=== PATIENT | male | born 1960 | race Caucasian/White ===

== ENCOUNTER 2022-07-03 20:50 | Emergency (ER) | payer OTHER, SELFPAY ==
[2022-07-03 20:55] VITALS: PULSE 102; RESP 16; TEMP 35.9; O2SAT 94
--- NOTE | 2022-07-03 21:01 | W.ED.WOUNDLC ---
HPI - Wound/Laceration General: Chief Complaint: Wound/Laceration Stated Complaint: left hand lac Time Seen by Provider: 07/03/22 21:01 History of Present Illness: 62-year-old male patient comes in today for injury to the radial aspect of the left index finger. Patient was carving a turkey when the knife slipped causing him to lacerate himself. Incident occurred about 2 hours prior to arrival. Patient does not recall his last tetanus shot. Patient appears well. Patient appears no acute distress. Patient does report the use of anticoagulants. Review of Systems Musc: Reports: extremity pain Skin/Breast: Reports: new lesions Procedures Laceration Laceration 1: Site: hand Side (If applicable): left Size (cm): 3 Description: linear Depth: simple, single layer Local Anesthetic: lidocaine 1% Amount of anesthesia used (mL): 2 Skin layer closed with: nylon Size (cm): 5-0 Number of sutures: 5 Technique: simple, interrupted Course Vital Signs: Vital signs: Vital Signs Temperature 96.7 F L 07/03/22 20:55 Pulse Rate 102 H 07/03/22 20:55 Respiratory Rate 16 07/03/22 20:55 Pulse Oximetry 94 07/03/22 20:55 Oxygen Delivery Me thod 07/03/22 20:55 MDM - Wound/Laceration Medical Decision Making Patient comes in for evaluation of injury that occurred about 2 hours prior to arrival. Patient has a laceration 3 cm to the radial aspect of his left index finger. Normal range of motion. Bleeding is controlled. Differential diagnosis includes tendon injury, foreign body, laceration. No signs of foreign body, fracture, or tendon injury is noted on exam. Wound was closed with 5 simple interrupted sutures. Patient tolerated well. Tetanus was updated. Discharge Plan Discharge Patient Disposition: Home Clinical Impression: Finger laceration Qualifiers: Encounter type: initial encounter Finger: index finger Damage to nail status: without damage Foreign body presence: without foreign body Laterality: left Qualified Code(s): S61.211A - Laceration without foreign body of left index finger without damage to nail, initial encounter Condition: Stable Discharge Orders: Discharge ED (Routine); Ordered 07/03/22 Ordered By: Raul Clayton Referrals: Chad Moreno MD [Family Provider] - Discharge Diet: Usual diet Discharge Activity: Increase activity as tolerated Patient Instructions: Care For Your Stitches (ED) Activity Restrictions/Additional Instructions: Keep wound clean and dry. Is important keep the wound as dry as possible for the first 48 hours to prevent infection. Supportive dressing to help splint the wound. Sutures need to come out in 5 to 7 days. Follow-up with primary care for further instruction return to ED for worsening symptoms or new concerns. Coding Level of Care Code ED [employer] Worker for Karen Kilgore
[2022-07-03 22:01] VITALS: RESP 16
[2022-07-03] MEDS: tetanus-dipt-pertussis 0.5 mL SDV IM (22:01)
== END 2022-07-03 22:02 | disposition home or self-care (01) ==
PROVIDERS: Emergency Provider Nurse Practitioner Family; Family Provider Family Medicine
DX: S61.211A Laceration without foreign body of left index finger without damage to nail, initial encounter (principal); W26.0XXA Contact with knife, initial encounter; Z23 Encounter for immunization
CPT/HCPCS: 12002; 90715; 99283